=== PATIENT | male | born 1980 | race Caucasian/White ===

== ENCOUNTER 2016-10-14 16:46 | Inpatient (IN) | payer MEDICARE, OTHER ==
[~2016-10-14] VITALS: Ht 172.7 cm; Wt 74.8 kg
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
--- NOTE | ~2016-10-14 | PN ---
Unit #: [id number] #: [id number] Patient: ANDRES DE LA GARZA JR [id number] [facility] [address] [place] [address] [id number] MR#: [id number] NAME: ANDRES DE LA GARZA JR ROOM: P121 Age: 36 Sex: M Admission Date: 10/14/2016 : 1980 Attending Physician: Jabier Molina M.D. Admitting Physician: Jabier Molina M.D. Primary Care Physician: Generic Doctor Not In System [facility] PROGRESS NOTES DATE 10/21/2016 DISCUSSION Andres De La Garza is a 36-year-old male seen on 10/21/2016. Patient interviewed. Chart reviewed. Obtained information from nursing staff. Patient was compliant, cooperative. Mood was labile, sad, dysphoric, anxious. Patient reported still having problem with the anxiety, restlessness of his legs at night. Patient still seclusive, isolative, flat affect, sad, dysphoric. Complete review of system unremarkable. MENTAL STATUS EXAMINATION General appearance, patient dressed casually. Attention span, concentration fair. Oriented in time, place and person. Mood and affect sad, depressed, withdrawn. Speech monotone. Thought process concrete. Patient denied any thoughts of harming self but guarded, withdrawn, sad, dysphoric mood. Passive SI, anxiety, restlessness of his legs. Recent and remote memory poor. Insight and judgement poor. DIAGNOSES 1. Major depressive disorder, recurrent, severe. 2. Amphetamine use disorder, severe. ASSESSMENT/PLAN Advised to continue with current medication and therapeutic protocol with a plan to add Requip 1 mg at bedtime. Continue with the other medication same and consider transferring patient to detox unit. Dictated by... Jackelyn Acevedo/marc TD: 10/21/2016 23:17 JOB #: [id number] Unit #: [id number] #: [id number] Patient: ANDRES DE LA GARZA JR [facility] PROGRESS NOTES Page 1 of 1 X Jabier Molina MD X PROGRESS NOTE
--- NOTE | ~2016-10-14 | PN ---
Unit #: [id number] #: [id number] Patient: ANDRES DE LA GARZA JR [id number] [facility] [address] [place] [address] [id number] I MR#: [id number] NAME: ANDRES DE LA GARZA JR ROOM: P121 Age: 36 Sex: M Admission Date: 10/14/2016 : 1980 Attending Physician: Jabier Molina M.D. Admitting Physician: Jabier Molina M.D. Primary Care Physician: Generic Doctor Not In System [facility] PROGRESS NOTES DATE 10/18/2016 DISCUSSION Andres De La Garza is a 36-year-old male. Patient interviewed. Chart reviewed. Obtained information from nursing staff. Patient was compliant, cooperative. Mood was labile. Patient reported still having problem with the anxiety and chronic pain, mood lability, withdrawn, isolative but denied any thoughts of harming self or others. Complete review of system unremarkable. MENTAL STATUS EXAMINATION General appearance, patient dressed casually. Attention span, concentration fair. Oriented in place and person. Mood and affect labile. Speech monotone. Thought process concrete. Patient denied any thoughts of harming self or others but withdrawn, isolative, guarded, somewhat paranoid. Recent and remote memory poor. Insight and judgement poor. DIAGNOSES 1. Major depressive disorder, recurrent, severe, F33.2. 2. Amphetamine use disorder, severe. 3. Sedative/hypnotic use disorder. 4. Psychosis NOS. ASSESSMENT/PLAN Advised to continue with current medication and therapeutic protocol. Advised to add Neurontin 300 mg t.i.d. If needed, consider further adjustment of medication. Dictated by... Jackelyn Acevedo/marc TD: 10/18/2016 23:16 JOB #: [id number] Unit #: [id number] #: [id number] Patient: ANDRES DE LA GARZA JR [facility] PROGRESS NOTES Page 1 of 1 X Jabier Molina MD X PROGRESS NOTE
--- NOTE | ~2016-10-14 | CO ---
Unit #: [id number] #: [id number] Patient: MARIA ESTHER DE LA GARZA JR [id number] [facility] [address] [place] [address] [id number] I MR#: [id number] NAME: MARIA ESTHER DE LA GARZA JR ROOM: P121 Age: 36 Sex: M Admission Date: 10/14/2016 : 1980 Attending Physician: Jabier Molina M.D. Primary Care Physician: Generic Doctor Not In System Consultation Date: 10/15/2016 CONSULTATION REPORT ORDERING PROVIDER Dr. Molina. REASON FOR CONSULT Right foot infection. SUBJECTIVE The patient reports that he stepped on a thorn or something else that got stuck in his foot and then because of the masses, he began picking out it extensively. He reports now that his foot has multiple areas that are open and at one point have been draining both blood and pus. He did go to [facility] 2 days ago, where he was given doxycycline, but it was not started until he came to [facility]. He reports that the drainage has subsided quite. He has been wearing bandages on it. He is able to walk on it now. OBJECTIVE Multiple areas noted on the right foot, where the skin has been picked away to the point that it was bleeding. No drainage noted at this time, and the bandage is removed or cleaned. There is no streaking, but minimal erythema around above the wounds. ASSESSMENT Right foot wound. PLAN Plan is to continue the doxycycline as prescribed. Do foot soaks and leave the bandages off as long as the wounds are not checked in. Dictated by... Tere Palacios/jacob TD: 10/16/2016 08:52 JOB #: [id number] Unit #: [id number] #: [id number] Patient: MARIA ESTHER DE LA GARZA JR CONSULTATION REPORT Page 1 of 1 X URBAN CARMONA APRN CONSULTATION REPORT
--- NOTE | ~2016-10-14 | PN ---
Unit #: [id number] #: [id number] Patient: ANDRES DE LA GARZA JR [id number] [facility] [address] [place] [address] [id number] I MR#: [id number] NAME: ANDRES DE LA GARZA JR ROOM: P121 Age: 36 Sex: M Admission Date: 10/14/2016 : 1980 Attending Physician: Jabier Molina M.D. Admitting Physician: Jabier Molina M.D. Primary Care Physician: Generic Doctor Not In System [facility] PROGRESS NOTES DATE OF SERVICE 10/15/2016 DISCUSSION Andres is a 36-year-old male seen on 10/15/2016. Patient interviewed, chart reviewed. Obtained information from nursing staff. Patient continues to be sad, dysphoric, withdrawn, isolative, guarded, paranoid, having suicidal ideation. Complete review of systems unremarkable. MENTAL STATUS EXAMINATION General appearance, patient dressed casually. Attention span and concentration fair. Oriented to place and person. Mood and affect sad depressed. Speech monotone. Thought process concrete. Patient reported having suicidal ideation, hallucination, anxious, nervous, withdrawn. Recent and remote memory poor. Insight and judgement poor. DIAGNOSES 1. Major depressive disorder recurrent severe. 2. Rule out bipolar mood disorder. 3. Amphetamine use disorder severe. ASSESSMENT/PLAN Advise to continue with current medication. Advise to add Zyprexa 10 mg at bedtime. If needed consider further adjustment of medication. Dictated by... Jackelyn Acevedo/frank TD: 10/17/2016 05:53 JOB #: [id number] Unit #: [id number] #: [id number] Patient: ANDRES DE LA GARZA JR [facility] PROGRESS NOTES Page 1 of 1 X Jabier Molina MD PROGRESS NOTE
--- NOTE | ~2016-10-14 | DS ---
Unit #: [id number] #: [id number] Patient: MARIA ESTHER DE LA GARZA JR [id number] [place] [address] [id number] I MR#: [id number] NAME: MARIA ESTHER DE LA GARZA JR ROOM: P121 Age: 36 Sex: M Admission Date: 10/14/2016 : 1980 Discharge Date: 10/22/2016 Attending Physician: Jabier Molina M.D. Primary Care Physician: Generic Doctor Not In System DISCHARGE SUMMARY REASON FOR ADMISSION Suicidal ideation, psychosis, methamphetamine abuse. DIAGNOSTIC STUDIES Laboratory data, remarkable for a glucose of 143, WBC 11.9. HOSPITAL COURSE The patient was admitted to inpatient unit on October 14, and discharged on 10/22/16. The patient was treated with group therapy, individual therapy, medication management. The patient was responsive to treatment, showed improvement and subsequently was discharged with the plan to followup in drug rehab program. DISCHARGE DIAGNOSES Psychiatric: [place] I Major depressive disorder, recurrent, severe, F33.2. Amphetamine use disorder, severe, F15.20. Sedative hypnotic use disorder, F13.20. Psychosis, NOS, F29.0. [place] II Deferred. [place] III Foot infection. [place] IV Psychosocial stressor, homelessness, financial problems. 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 DISCHARGE MEDICATIONS 1. Seroquel 50 mg at bedtime for mood stabilization 2. Zoloft 50 mg at bedtime for depression 3. Neurontin 300 mg three times a day for anxiety, chronic pain, the patient was given a two week supply only 4. BuSpar 10 mg three times a day for anxiety 5. Requip 1 mg at bedtime for restless leg syndrome CONDITION AT DISCHARGE The patient is pleasant, cooperative, denied any psychotic symptoms or any suicidal ideation. PROGNOSIS Guarded. Unit #: [id number] #: [id number] Patient: MARIA ESTHER DE LA GARZA JR DIET AND ACTIVITY As tolerated. Dictated by... Jabier Molina M.D. SAUL/cornelio TD: 10/26/2016 07:27 JOB #: [id number] DISCHARGE SUMMARY Page 1 of 1 X Jabier Molina MD DISCHARGE SUMMARY
--- NOTE | ~2016-10-14 | PN ---
Unit #: [id number] #: [id number] Patient: ANDRES DE LA GARZA JR [id number] [facility] [address] [place] [address] [id number] I MR#: [id number] NAME: ANDRES DE LA GARZA JR ROOM: P121 Age: 36 Sex: M Admission Date: 10/14/2016 : 1980 Attending Physician: Jabier Molina M.D. Admitting Physician: Jabier Molina M.D. Primary Care Physician: Generic Doctor Not In System [facility] PROGRESS NOTES DATE 10/19/2016 DISCUSSION Andres De La Garza is a 36-year-old male, seen on 10/19/2016. The patient interviewed, chart reviewed, and obtained information from the nursing staff. The patient continues to be withdrawn, isolative, flat affect, sad, dysphoric mood, anxious, but reports feeling better. REVIEW OF SYSTEMS Complete review of systems unremarkable. MENTAL STATUS EXAMINATION General appearance: Patient dressed casually. Attention span and concentration, fair. Oriented in time, place, and person. Mood and affect, sad and depressed. Speech, monotone. Thought process, concrete. The patient reported passive SI, withdrawn, isolative, guarded. Recent and remote memory, poor. Insight and judgment, poor. DIAGNOSES 1. Major depressive disorder, recurrent, severe. 2. Amphetamine use disorder, severe. 3. Sedative-hypnotic use disorder. 4. Psychosis, NOS. ASSESSMENT/PLAN Advised to continue with the current medication and therapeutic protocol, and if needed consider further adjustment of medication. Dictated by... Jackelyn Acevedo/cornelio TD: 10/20/2016 05:28 JOB #: [id number] Unit #: [id number] #: [id number] Patient: ANDRES DE LA GARZA JR [facility] PROGRESS NOTES Page 1 of 1 X Jabier oMlina MD PROGRESS NOTE
--- NOTE | ~2016-10-14 | PN ---
Unit #: [id number] #: [id number] Patient: MARIA ESTHER DE LA GARZA JR [id number] [facility] [address] [place] [address] [id number] I MR#: [id number] NAME: MARIA ESTHER DE LA GARZA JR ROOM: P121 Age: 36 Sex: M Admission Date: 10/14/2016 : 1980 Attending Physician: Jabier Molina M.D. Admitting Physician: Jabier Molina M.D. Primary Care Physician: Generic Doctor Not In System [facility] PROGRESS NOTES DATE 10/20/2016 DISCUSSION Mr. aCmpos is a 36-year-old male, seen on 10/20/2016. The patient reported having severe anxiety, mood lability, withdrawn, isolative. The patient reported having difficulty getting out of his room, sad, dysphoric mood. The patient also wanted to attend the CD program, wanted to be transferred to his CD unit. REVIEW OF SYSTEMS Complete review of systems unremarkable. MENTAL STATUS EXAMINATION General appearance: Patient dressed casually. Attention span and concentration, fair. Oriented in time, place, and person. Mood and affect, labile. Speech, monotone. Thought process, concrete. The patient denied any thoughts of harming self or others. Recent and remote memory, poor, still having a lot of anxiety, withdrawn, sad, dysphoric. Insight and judgment, [id number]. DIAGNOSES 1. Major depressive disorder, recurrent, severe. 2. Amphetamine use disorder, severe. 3. Sedative-hypnotic use disorder. 4. Psychosis, NOS. ASSESSMENT/PLAN Advised to consider [facility] and advised BuSpar 10 mg three times a day, continue with the inpatient programming and current medication. Dictated by... Jackelyn Acevedo/cornelio TD: 10/21/2016 05:23 JOB #: [id number] Unit #: [id number] #: [id number] Patient: MARIA ESTHER DE LA GARZA JR [facility] PROGRESS NOTES Page 1 of 1 X Jabier Molina MD X PROGRESS NOTE
--- NOTE | ~2016-10-14 | PN ---
Unit #: [id number] #: [id number] Patient: ANDRES DE LA GARZA JR [id number] [facility] [address] [place] [address] [id number] I MR#: [id number] NAME: ANDRES DE LA GARZA JR ROOM: P121 Age: 36 Sex: M Admission Date: 10/14/2016 : 1980 Attending Physician: Jabier Molina M.D. Admitting Physician: Jabier Molina M.D. Primary Care Physician: Generic Doctor Not In System [facility] PROGRESS NOTES DATE OF SERVICE: 10/17/2016 DISCUSSION Andres is a 36-year-old male, seen on 10/17/2016. The patient interviewed, chart reviewed, and obtained information from nursing staff. The patient was compliant and cooperative, but withdrawn, isolative, flat affect, sad, dysphoric, anxious, and nervous. The patient still reporting having passive SI. REVIEW OF SYSTEMS Complete review of systems unremarkable. MENTAL STATUS EXAMINATION General appearance, the patient dressed casually. Attention span and concentration, fair. Oriented in place and person. Mood and affect, sad and depressed. Speech, monotone. Thought process, concrete. The patient denied any thoughts of harming others, but having passive SI, withdrawn, isolative, and seclusive. Recent and remote memory, poor. Insight and judgment, poor. DIAGNOSES Major depressive disorder, recurrent, severe, F33.2; amphetamine use disorder, severe; and sedative hypnotic use disorder, moderate. ASSESSMENT AND PLAN Advised to continue with current medication and therapeutic protocol. If needed, consider further adjustment of medication. Dictated by... Jackelyn Acevedo/jacob TD: 10/17/2016 18:50 JOB #: [id number] Unit #: [id number] #: [id number] Patient: ANDRES DE LA GARZA JR [facility] PROGRESS NOTES Page 1 of 1 X Jabier Molina MD PROGRESS NOTE
--- NOTE | ~2016-10-14 | HP ---
Unit #: [id number] #: [id number] Patient: MARIA ESTHER DE LA GARZA JR [id number] [place] [address] [id number] I MR#: [id number] NAME: MARIA ESTHER DE LA GARZA JR ROOM: P121 Age: 36 Sex: M Admission Date: 10/14/2016 : 1980 Attending Physician: Jabier Molina M.D. Admitting Physician: Jabier Molina M.D. Primary Care Physician: Generic Doctor Not In System HISTORY AND PHYSICAL HISTORY OF PRESENT ILLNESS The patient is a 36-year-old male admitted to [address] [place] [address] on 10/14/2016 for suicidal ideations and methamphetamine abuse. PAST MEDICAL HISTORY 1. Low back pain. 2. Infection on his right foot. PAST SURGICAL HISTORY Left femur. ALLERGIES Cephalosporin. SOCIAL HISTORY He is disabled. He is homeless. He smokes 1/2 pack of cigarettes daily. Uses alcohol, marijuana and 2 grams of methamphetamine daily. FAMILY HISTORY Noncontributory. REVIEW OF SYSTEMS CONSTITUTIONAL: No fever or chills. HEENT: Denies any sore throat, ear pain or runny nose. CARDIOVASCULAR: Denies chest pain, irregular heart rhythm or palpitations. CHEST: Denies shortness of breath or cough. No hemoptysis. GASTROINTESTINAL: Denies nausea, vomiting, diarrhea or chronic constipation. ENDOCRINE: Denies history of increased thirst or urination. No recent significant weight loss or gain. GENITOURINARY: Denies dysuria, frequency, or hematuria. SKIN: Denies any rashes. HEMATOLOGIC: Denies history of increased bleeding or bruising. EXTREMITIES: Complains of right foot pain. NEUROLOGIC: Denies problems with vision or speech. No frequent, severe headaches. No numbness, tingling or weakness in any extremities. Denies loss of bladder or bowel control. CURRENT MEDICATIONS Doxycycline. PHYSICAL EXAMINATION GENERAL: He is awake, alert, oriented, in no acute distress. Unit #: [id number] #: [id number] Patient: MARIA ESTHER DE LA GARZA JR VITAL SIGNS: Temperature 97.7, heart rate 88, respirations 17, blood pressure 113/70. HEIGHT: 5 feet 7. WEIGHT: 180 pounds. SKIN: Warm and dry without rash or lesion. HEENT: Normocephalic. TMs not viewed. Oral and nasal passages clear. Conjunctivae clear. PERRLA. EOMs intact. NECK: Supple without lymphadenopathy or thyromegaly. HEART: Regular rate and rhythm without murmur. LUNGS: Clear. ABDOMEN: Soft, nontender. : Not done. EXTREMITIES: See consult. NEUROLOGICAL: Grossly within normal limits. Cranial Nerves: II: Visual albert are intact. III, IV AND : Extraocular movements are intact. Pupils are equal, round and reactive to light. V: Facial sensation is grossly normal. VII: Facial movements and expression are normal. VIII: Auditory acuity grossly intact. IX, X: Uvula is midline. Phonation is normal. XI: Patient shrugs shoulders and turns head normally. XII: Tongue protrudes in the midline. Sensory and Motor Function: Sensory and motor sensation is grossly normal. Motor: moves all extremities well. Coordination: Gait is normal. Deep Tendon Reflexes: Intact. IMPRESSION 1. Psychiatric admission. 2. Infection on the right foot. 3. Low back pain. RECOMMENDATIONS PSYCHIATRIC: Per psychiatrist. MEDICAL: No contraindication to participate in facility's activities. MEDICAL PROGNOSIS Fair. MEDICAL CONDITION Stable. Dictated by... Tere Palacios/marc TD: 10/15/2016 14:54 JOB #: [id number] Unit #: [id number] #: [id number] Patient: MARIA ESTHER DE LA GARZA JR HISTORY AND PHYSICAL Page 1 of 1 X URBAN CARMONA APRN HISTORY AND PHYSICAL
--- NOTE | ~2016-10-14 | PN ---
Unit #: [id number] #: [id number] Patient: MARIA ESTHER DE LA GARZA JR [id number] [facility] [address] [place] [address] [id number] MR#: [id number] NAME: MARIA ESTHER DE LA GARZA JR ROOM: P121 Age: 36 Sex: M Admission Date: 10/14/2016 : 1980 Attending Physician: Jabier Molina M.D. Admitting Physician: Jabier Molina M.D. Primary Care Physician: Generic Doctor Not In System [facility] PROGRESS NOTES DATE OF SERVICE: 10/16/2016 DISCUSSION Mr. Campos is a 36-year-old male, seen on 10/16/2016. The patient interviewed, chart reviewed, and obtained information from nursing staff. The patient reports that he is in lot of pain, withdrawn, isolative, flat affect. The patient reports that Celexa and trazodone are not working and had side effect; therefore, wanted to try a different medication. The patient reports that he was on Zoloft and Seroquel earlier that worked better. The patient also requested for larger portion. REVIEW OF SYSTEMS Complete review of systems unremarkable. MENTAL STATUS EXAMINATION The patient's vital signs; temperature 97.7, heart rate 86, respiratory rate 16, and blood pressure 103/71. Attention span and concentration, fair. Oriented in time, place, and person. Mood and affect; sad, depressed, and anxious. Speech, regular rate. Thought process, circumstantial. Association, the patient reported having passive SI, guarded, and paranoid. Recent and remote memory, poor. Insight and judgment, poor. DIAGNOSES Major depressive disorder, recurrent, severe, F33.2; amphetamine use disorder, severe, F15.20; sedative hypnotic use disorder, moderate, F13.20. ASSESSMENT AND PLAN Advised to continue with current medication and therapeutic protocol. Advised to discontinue Celexa and trazodone and start Zoloft 50 mg at bedtime and Seroquel 50 mg at bedtime. Advised larger portion of all meals. We will continue to follow. Dictated by... Jackelyn Acevedo/jacob TD: 10/16/2016 14:04 JOB #: [id number] Unit #: [id number] #: [id number] Patient: MARIA ESTHER DE LA GARZA JR PROGRESS NOTES Page 1 of 1 X Jabier Molina MD PROGRESS NOTE
[2016-10-16 11:24] LABS: ALBUMIN SERUM 3.7 g/dL (3.5-5.0); BILIRUBIN,TOTAL 0.2 mg/dL (0.2-2.0); BUN/CREATININE RATIO 22.85; CALCIUM SERUM 9.1 mg/dL (8.4-10.2); CREATININE SERUM 0.7 mg/dL (0.6-1.4); GLOM FILT RATE Estimated 119.8 mL/min (>60); POTASSIUM 4.3 mmol/L (3.5-5.1); PROTEIN TOTAL SERUM 6.7 g/dL (6.0-8.3)
[2016-10-18 12:41] LABS: BASOPHIL# 0.1 X10e3 (0-0.3); BASOPHIL% 0.6 % (0-2.5); EOSINOPHIL# 0.2 X10e3 (0-0.7); EOSINOPHIL% 1.3 % (0.0-7.0); HEMATOCRIT 47.4 % (38.0-50.0); LYMPHOCYTE# 2.1 X10e3 (1.0-3.5); MEAN CELL VOLUME 89.5 FL (83-96); MEAN CORPUSCULAR HEMOGLOBIN 30.2 PG (28-34); MEAN CORPUSCULAR HGB CONC 33.7 g/dL (30-36); MONOCYTE# 0.6 X10e3 (0-1.0); MONOCYTE% 4.9 % (3.0-12.0); NEUTROPHIL# 8.9 X10e3 (1.5-7.1); NEUTROPHIL% 75.2 % (40-75); RED BLOOD COUNT 5.29 X10e (3.90-5.60); RED CELL DISTRIBUTION WIDTH 13.6 % (11.0-15.5); WHITE BLOOD COUNT 11.9 X10e3 (4.0-10.5)
[2016-10-18 12:58] LABS: DIFF IND YES; PLATELET COUNT 189 X10e3 (140-420)
[2016-10-18 12:59] LABS: PLATELET ESTIMATE NORMAL (NORMAL); RBC NORMAL YES
[2016-10-21 16:44] LABS: HA AB IGM (HEPPAN) Nonreactive (()); HB CORE AB IGM (HEPPAN) Nonreactive (Nonreactive); HB S AG (HEPPAN) Nonreactive (Nonreactive); HEP C AB (HEPPAN) Reactive (Nonreactive)
== END 2016-10-22 09:32 | disposition home or self-care (01) | DRG 885 ==
LOC: P1S 21:04
PROVIDERS: Psychiatry & Neurology Psychiatry
PROC: HZ2ZZZZ Detoxification Services for Substance Abuse Treatment (ICD-10-PCS; principal; 2016-10-14)
DX: F33.2 Major depressive disorder, recurrent severe without psychotic features (principal); F13.20 Sedative, hypnotic or anxiolytic dependence, uncomplicated; F15.20 Other stimulant dependence, uncomplicated; L08.9 Local infection of the skin and subcutaneous tissue, unspecified; Z59.0 Homelessness; F17.210 Nicotine dependence, cigarettes, uncomplicated; M54.5 Low back pain; F29 Unspecified psychosis not due to a substance or known physiological condition
CPT/HCPCS: 80053; 80074; 85025; 87522